=== PATIENT | female | born 1935 | race Caucasian/White ===

== ENCOUNTER 2021-12-07 08:21 | Emergency (ER) | payer MEDICARE, OTHER ==
[2021-12-07] MEDS ORDERED: Sodium Chloride 0.9% 1,000 ML IV SCH (09:00)
[2021-12-07] MEDS ORDERED: cefTRIAXone 2 GM in Sodium Chloride 0.9% 100 ML IV ONE (10:00)
[2021-12-07] MEDS ORDERED: Sodium Chloride 0.9% 10 ML Syringe FLUSH PRN (10:37)
[2021-12-07] MEDS ORDERED: Iopamidol 755 Mg/ML 100 ML Bottle IVPUSH ONE (10:37)
[2021-12-07] MEDS ORDERED: Sodium Chloride 0.9% 100 ML IV SCH (10:45)
== END 2021-12-07 13:40 | disposition home or self-care (01) ==
LOC: JD.ED 08:21
DX: J18.9 Pneumonia, unspecified organism (principal); G30.9 Alzheimer's disease, unspecified; R91.8 Other nonspecific abnormal finding of lung field; R41.3 Other amnesia; I10 Essential (primary) hypertension; Z79.899 Other long term (current) drug therapy; Z79.82 Long term (current) use of aspirin
CPT/HCPCS: 36415; 36600; 71045; 71275; 74018; 80053; 81001; 82553; 82803; 83735; 83880; 85025; 85379; 85610; 85730; 86140; 93005; 96361; 96365; 99285; J0696; J3490; J7030; Q9967; 93010; 99284

== ENCOUNTER 2022-01-20 15:26 | Emergency (ER) | payer MEDICARE, OTHER ==
[2022-01-20] MEDS ORDERED: Sodium Chloride 0.9% 10 ML Syringe FLUSH PRN (15:31)
[2022-01-20] MEDS ORDERED: Diltiazem 25 MG/5 ML SDV IVPUSH ONE ×2 (15:33→18:39)
[2022-01-20] MEDS ORDERED: Sodium Chloride 0.9% 1,000 ML IV SCH (15:45)
[2022-01-20] MEDS ORDERED: Diltiazem 125 MG in Sodium Chloride 0.9% 100 ML IV SCH (15:45)
[2022-01-20] MEDS ORDERED: Diltiazem IR 60 MG Tab PO ONE ×2 (17:10→18:29)
== END 2022-01-20 19:21 | disposition home or self-care (01) ==
LOC: JD.ED 15:26
DX: I48.3 Typical atrial flutter (principal); J44.9 Chronic obstructive pulmonary disease, unspecified; I10 Essential (primary) hypertension; Z79.899 Other long term (current) drug therapy; Z79.82 Long term (current) use of aspirin; Z86.16 Personal history of COVID-19
CPT/HCPCS: 36415; 71045; 80053; 84443; 84484; 85025; 93005; 96374; 96376; 99285; A9270; J3490; J7030

== ENCOUNTER 2022-01-21 10:40 | Emergency (ER) | payer MEDICARE, OTHER ==
[2022-01-21] MEDS ORDERED: Sodium Chloride 0.9% 10 ML Syringe FLUSH PRN (11:20)
[2022-01-21] MEDS ORDERED: Diltiazem 25 MG/5 ML SDV IVPUSH ONE (11:43)
[2022-01-21 12:09] LABS: ESTIMATED GFR 44 mL/min (>60)
[2022-01-21] MEDS ORDERED: Diltiazem IR 60 MG Tab PO ONE (12:41)
== END 2022-01-21 15:00 | disposition home or self-care (01) ==
LOC: JD.ED 10:40
DX: I48.92 Unspecified atrial flutter (principal); J44.9 Chronic obstructive pulmonary disease, unspecified; I10 Essential (primary) hypertension; Z79.899 Other long term (current) drug therapy; Z79.82 Long term (current) use of aspirin
CPT/HCPCS: 36415; 71045; 80048; 84484; 93005; 96374; 99285; A9270; J3490; 93010; 99284

== ENCOUNTER 2022-02-27 09:27 | Emergency (ER) | payer MEDICARE, OTHER ==
[2022-02-27] MEDS ORDERED: Diltiazem 25 MG/5 ML SDV IVPUSH ONE (10:07)
[2022-02-27] MEDS ORDERED: Dextrose 5%-Lactated Ringers 1,000 ML IV SCH (10:15)
[2022-02-27] MEDS ORDERED: Digoxin 500 MCG/2 ML Amp IVPUSH ONE (11:56)
== END 2022-02-27 12:34 | disposition home or self-care (01) ==
LOC: JD.ED 09:27
DX: I48.92 Unspecified atrial flutter (principal); I11.0 Hypertensive heart disease with heart failure; I50.9 Heart failure, unspecified; R91.8 Other nonspecific abnormal finding of lung field; J44.9 Chronic obstructive pulmonary disease, unspecified; Z79.82 Long term (current) use of aspirin; Z79.899 Other long term (current) drug therapy
CPT/HCPCS: 36415; 71045; 80053; 82553; 83735; 83880; 85025; 85610; 85730; 86140; 96361; 96374; 96375; 99285; J1160; J3490; J7121

== ENCOUNTER 2022-12-28 17:57 | Emergency (ER) | payer MEDICARE, OTHER | END 2022-12-28 19:18 | disposition home or self-care (01) | LOC: JD.ED 17:57 | DX: S80.02XA Contusion of left knee, initial encounter (principal); I10 Essential (primary) hypertension; J44.9 Chronic obstructive pulmonary disease, unspecified; Z86.16 Personal history of COVID-19; Z79.899 Other long term (current) drug therapy; W19.XXXA Unspecified fall, initial encounter | CPT/HCPCS: 73564-26-LT; 73564-LT; 99282; 99283 ==